=== PATIENT | female | born 1990 | race Caucasian/White ===

== ENCOUNTER → 2016-05-11 | Outpatient (CLI) | payer OTHER, BC ==
[~2016-05-11] VITALS: Ht 157.5 cm; Wt 76.7 kg
[~2016-05-11] MED LIST: SINCALIDE 1.53 MCG in IV NORMAL SALINE 50ML 30 ML IV ONE
--- NOTE | 2016-05-11 08:49 | RAD ---
Examination: Ultrasound abdomen limited History: Intermittent epigastric pain, right upper quadrant pain Comparison: None available Findings: The visualized pancreas grossly appears unremarkable. No evidence of gallstones identified with the gallbladder wall thickness measures 1.6 mm. The common bile duct measures 3.5 mm in transverse dimension. The visualized IVC appears patent. The liver measures 13.8 cm. The right kidney measures 10.7 cm in length. Impression: Unremarkable visualized exam.
--- NOTE | 2016-05-11 10:55 | RAD ---
Radionuclide hepatobiliary scan with gallbladder ejection fraction, 05/11/2016: History: Epigastric pain, nausea and bloating Following IV injection of 5.5 mCi of technetium 99m Choletec there was prompt uptake of the radionuclide from the blood stream by the liver. Activity is present in the bile ducts and small bowel at 15 minutes. Gallbladder activity develops at 30 minutes. Additional imaging of the gallbladder was performed following IV injection of 1.5 mcg of cholecystokinin. The gallbladder ejection fraction was calculated at 72%. IMPRESSION: 1. Normal radionuclide hepatobiliary scan. 2. The gallbladder ejection fraction is 72%.
== END | disposition home or self-care (01) ==
LOC: US 07:42
PROVIDERS: ATTEND Internal Medicine Gastroenterology
DX: R10.13 Epigastric pain (principal); K59.00 Constipation, unspecified; R11.0 Nausea
CPT/HCPCS: 76705; 78226; 96374; 96375; A9537; J2805